=== PATIENT | female | born 1975 | race African-American/Black ===

== ENCOUNTER 2019-01-24 08:31 | Emergency (ER) | payer MEDICAID, OTHER ==
[~2019-01-24] VITALS: Ht 165.1 cm; Wt 79.8 kg
[2019-01-24 08:54] VITALS: BP 121/67
[2019-01-24] MEDS ORDERED: KETOROLAC TROMETH 60MG/2ML VIAL IM ONE (09:15)
== END 2019-01-24 10:36 | disposition home or self-care (01) ==
LOC: ER 08:41
DX: S46.911A Strain of unspecified muscle, fascia and tendon at shoulder and upper arm level, right arm, initial encounter (principal); M75.31 Calcific tendinitis of right shoulder; Z98.51 Tubal ligation status; X50.0XXA Overexertion from strenuous movement or load, initial encounter; Y93.89 Activity, other specified; Y99.8 Other external cause status; Y92.89 Other specified places as the place of occurrence of the external cause
CPT/HCPCS: 73030; 81025; 96372; 99284; J1885

== ENCOUNTER 2024-07-08 08:09 | Emergency (ER) | payer MEDICAID, OTHER ==
[~2024-07-08] VITALS: Ht 165.1 cm; Wt 90.7 kg
[2024-07-08 08:50] VITALS: BP 130/78; PULSE 79; RESP 18; TEMP 98.1; O2SAT 99
[2024-07-08] MEDS: KETOROLAC TROMETH 60MG/2ML VIAL IM ONE (08:50)
[2024-07-08] MEDS ORDERED: METH-1182 PO (09:07)
== END 2024-07-08 09:12 | disposition home or self-care (01) ==
LOC: ER 08:09
DX: M75.91 Shoulder lesion, unspecified, right shoulder (principal); Z98.890 Other specified postprocedural states; Z79.899 Other long term (current) drug therapy
CPT/HCPCS: 73030; 96372; 99283; J1885

== ENCOUNTER 2024-12-10 21:18 | Emergency (ER) | payer OTHER ==
[~2024-12-10 21:18] MED LIST: METH-1182 PO
--- NOTE | 2024-12-10 21:39 | ED.PDOC ---
HPI Allergic reaction HPI Comments 49 year old female came to ER due to allergic reaction. Patient was working when she started feeling her upper lip swell. Denies any rashes, pruritus, shortness of breath, wheezing or throat pain, but states she feels that her mouth is dry. Denies any exposure to allergens. Patient took Benadryl 50mg tablet prior to coming to the ER. Chief Complaint: Allergic Reaction Time Seen by MD: 21:37 Primary Care Provider: UNKNOWN Reviewed Notes: Nurses Notes Allergies: Coded Allergies: [place] Oil (Verified Allergy, Unknown, 12/10/24) Egg-derived Products (Verified Allergy, Unknown, 12/10/24) Soy Allergy (Verified Allergy, Unknown, 12/10/24) Home Meds Active Scripts Methocarbamol (Methocarbamol) 750 Mg Tab, 750 MG PO BID, #30 TAB Prov:BROOKLYN LEON 07/08/24 Information Source: Patient Mode of Arrival: Ambulatory Severity: Moderate Rash: None SOB: None Difficulty swallowing: None Pruritus: None Timing: Minutes Duration: Since onset Prehospital treatment: Treatment Location: Lips Exposed to: Unknown Developed: Facial Swelling (upper lip) History of: None Modyifying Factors: None Associated Sign and Symptoms: None Past Medical History PAST MEDICAL HISTORY: Denies Surgical History: 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 History: No Pertinent WATCHGUARD History Family History Family History: Reviewed,noncontributory to illness Social History Smoker: Non-Smoker Alcohol: Denies ETOH Use Drugs: Denies Drug Use Lives In: Home Constitutional: denies: chills, diaphoresis, fatigue, fever, malaise, sweats, weakness, others EENTM: denies: blurred vision, double vision, ear bleeding, ear discharge, ear drainage, ear pain, ear ringing, eye pain, eye redness, hearing loss, mouth pain, mouth swelling, nasal discharge, nose bleeding, nose congestion, nose pain, photophobia, tearing, throat pain, throat swelling, voice changes, others Respiratory: denies: cough, hemoptysis, orthopnea, SOB at rest, shortness of breath, SOB with excertion, stridor, wheezing, others Cardiovascular: denies: chest pain, dizzy spells, diaphoresis, Dyspnea on exertion, edema, irregular heart beat, left arm pain, lightheadedness, palpitations, PND, syncope, others Gastrointestinal: denies: abdomen distended, abdominal pain, blood streaked bowels, constipated, diarrhea, dysphagia, difficulty swallowing, hematemesis, melena, nausea, poor appetite, poor fluid intake, rectal bleeding, rectal pain, vomiting, others Genitourinary: denies: abnormal vagina bleeding, burning, dyspareunia, dysuria, flank pain, frequency, hematuria, incontinence, pain, , vagina discharge, urgency, others Neurological: denies: dizziness, fainting, headache, left sided numbness, left sided weakness, numbness, paresthesia, pre-existing deficit, right sided numbness, right sided weakness, seizure, speech problems, tingling, tremors, weakness, others Musculoskeletal: denies: back pain, gout, joint pain, joint swelling, muscle pain, muscle stiffness, neck pain, others Integumetry: denies: bruises, change in color, change in hair/nails, dryness, laceration, lesions, lumps, rash, wounds, others Allergic/Immunocompromised: reports: others (swelling upper lip); denies: Difficulty Healing, Frequent Infections, Hives, Itching Hematologic/Lymphatic: denies: anemia, blood clots, easy bleeding, easy bruising, swollen glands, others Endocrine: denies: excessive hunger, excessive sweating, excessive thirst, excessive urination, flushing, intolerance to cold, intolerance to heat, unexplained weight gain, unexplained weight loss, others Psychiatric: denies: anxiety, bipolar disorder, depression, hopeless, panic disorder, schizophrenia, sleepless, suicidal, others Physical Exam General Appearance: No Apparent Distress, Normal HEENT: Normal ENT Inspection, Pharynx Normal, TMs Normal, Other (swelling right upper lip) Neck: Full Range of Motion, Non-Tender, Normal, Normal Inspection Respiratory: Chest Non-Tender, Lungs Clear, No Accessory Muscle Use, No Respiratory Distress, Normal Breath Sounds Cardiovascular: No Edema, No JVD, No Murmur, No Gallop, Normal Peripheral Pulses, Regular Rate/Rhythm Breast Exam: Deferred Gastrointestinal: No Organomegaly, Non Tender, No Pulsatile Mass, Normal Bowel Sounds, Soft Genitalia: Deferred Pelvic: Deferred Rectal: Deferred Extremities: No calf tenderness, Normal capillary refill, Normal inspection, Normal range of motion, Non-tender, No pedal edema Musculoskeletal : Apperance: Normal Neurologic: Alert, phys ther II-XII nml as Tested, No Motor Deficits, Normal Affect, Normal Mood, No Sensory Deficits Cerebellar Function: Normal Reflexes: Normal Skin: Dry, Normal Color, Warm Lymphatic: No Adenopathy Was a procedure done? Was a procedure done?: No Differential diagnosis (all) Differential Diagnosis: Anaphylaxis, Angioedema, Urticaria X-Ray, Labs, Meds, VS Vital Signs Date Time Temp Pulse Resp B/P (MAP) Pulse Ox O2 Delivery O2 Flow Rate FiO2 12/10/24 21:21 99.1 85 18 100 99.1 12/10/24 21:21 18 100 Room Air* 0 21 Current Medications Medications (Trade) Dose Ordered Sig/Prasanna Route Start Time Stop Time Status Last Admin Methylprednisolone Sodium Succinate (Solu Medrol) 125 mg ONCE ONCE IV 12/10/24 21:30 12/10/24 21:31 DC 12/10/24 21:44 Famotidine (Pepcid Injection) 20 mg ONCE ONCE IV 12/10/24 21:30 12/10/24 21:31 DC 12/10/24 21:44 Sodium Chloride 1,000 ml @ 1,000 mls/hr Q1H ONCE IV 12/10/24 21:30 12/10/24 22:29 DC 12/10/24 21:45 Time of 1ST Reevaluation: 21:34 Reevaluation 1ST: Unchanged Patient Education/Counseling: Diagnosis, Treatment Family Education/Counseling: No Family Present Departure 1 Departure Time of Disposition: 23:08 (Patient had allergic reaction that appears to be improving. We will discharge patient home with outpatient follow up) Impression: Primary Impression: Allergic reaction Qualified Codes: T78.40XA - Allergy, unspecified, initial encounter Disposition: HOME / SELF CARE / HOMELESS Condition: Stable Additional Instructions: You had an allergic reaction. You received medications in the ER. You were prescribed steroids and an epinephrine pain. Please use as directed. You should follow up with your regular doctor within one week to ensure you are doing better. You may benefit from an appointment with an Gas Meter Mechanic. If your symptoms worsen, or you have any other concerns then please return to the ER. e-Prescriptions Epinephrine (Anaphylaxis) (Auvi-Q) 0.1 Mg/0.1 Ml Inj 0.1 MG IJ O PRN for 1 Day, #1 INJ Prov: KENIA SOUZA MD 12/10/24 Prednisone (Prednisone) 20 Mg Tab 40 MG PO DAILY for 5 Days, #10 MG Prov: KENIA SOUZA MD 12/10/24 Discharged With: Self Critical Care Note Critical Care Time?: Yes (35 min-critical care time only) Critical care comment: Allergy Stability Stability form required: No Heart Score Heart Score: Heart Score Response (Comments) Value History N/A 0 EKG N/A 0 Age N/A 0 Risk Factors N/A 0 Troponin N/A 0 Total 0 I personally scribed for KENIA SOUZA MD ([email or web address]) on 12/10/24 at 21:39. Electronically submitted by Jonathan Roland ([email or web address]). KENIA SOUZA MD Dec 10, 2024 21:39
[2024-12-10] MEDS: methylPREDNISolone SOD SUCC 125 MG/2 ML VL IV ONE (21:44)
[2024-12-10] MEDS: FAMOTIDINE (10MG/ML) 2ML VL IV ONE (21:44)
[2024-12-10] MEDS: SODIUM CHLORIDE 0.9% 1,000 ML IV ONE (21:45)
[2024-12-10] MEDS: diphenhdrAMINE HCL 50 MG/1 ML VL IV ONE (21:48)
[2024-12-10] MEDS ORDERED: EPIN0.1I11 IJ (23:09)
[2024-12-10] MEDS ORDERED: PRED20TA2 PO (23:09)
[2024-12-10 23:20] VITALS: BP 125/80; PULSE 77; RESP 16; TEMP 98.2; O2SAT 99
== END 2024-12-10 23:27 | disposition home or self-care (01) ==
LOC: ER 21:18 → EEVIPCON 21:18 → ER 23:22
DX: T78.40XA Allergy, unspecified, initial encounter (principal); Z98.890 Other specified postprocedural states; Z91.018 Allergy to other foods; Z91.012 Allergy to eggs
CPT/HCPCS: 96361; 96374; 96375; 99284; J2919; J3490; J7030